=== PATIENT | male | born 1935 | race Two or more races ===

== ENCOUNTER → 2017-02-05 | Outpatient (CLI) | payer MEDICARE, OTHER ==
[~2017-02-05] MED LIST: ASPI-556 PO; ATOR40TA28 PO; CARV3.1262 PO; DOCU-119 PO; LISI-660 PO; METF500T4 PO; TICA90TA PO
== END | disposition home or self-care (01) ==
LOC: RADPV 13:46
PROVIDERS: ATTEND Internal Medicine Cardiovascular Disease
DX: I50.1 Left ventricular failure, unspecified (principal); I25.2 Old myocardial infarction
CPT/HCPCS: 93306

== ENCOUNTER → 2017-03-15 | Outpatient (CLI) | payer MEDICARE, OTHER | END | disposition home or self-care (01) | LOC: RADMN 12:14 | PROVIDERS: ATTEND Family Medicine | DX: R42 Dizziness and giddiness (principal) | CPT/HCPCS: 70450 ==

== ENCOUNTER 2017-05-12 05:31 | Emergency (ER) | payer MEDICARE, OTHER ==
[~2017-05-12] VITALS: Ht 172.7 cm; Wt 88.6 kg
[2017-05-12 06:28] LABS: BASOPHILS # (AUTO) 0.05 K/uL (0.00-0.20); BASOPHILS % (AUTO) 0.7 % (0.0-2.0); EOSINOPHILS % (AUTO) 6.73 % (1.0-6.0); HEMATOCRIT 34.9 % (41-53); HEMOGLOBIN 11.7 g/dL (13.5-17.5); LYMPHOCYTES # (AUTO) 1.3 K/uL (1.0-4.8); LYMPHOCYTES % (AUTO) 17.5 % (22.0-44.0); MEAN CORPUSCULAR HEMOGLOBIN 31.1 pg (26.0-34.0); MEAN CORPUSCULAR HGB CONC 33.5 G/dL (31.0-37.0); MEAN CORPUSCULAR VOLUME 93 fL (80-100); MONOCYTES # (AUTO) 0.6 K/uL (0.1-1.0); PLATELET COUNT (AUTO) 270 K/uL (150-450); RED BLOOD CELL COUNT(AUTO) 3.76 MIL/uL (4.50-5.90); RED CELL DISTRIBUTION WIDTH 14.4 % (11.5-14.5); WHITE BLOOD COUNT (AUTO) 7.4 K/uL (4.5-11.0)
[2017-05-12 06:36] LABS: APPEARANCE,URINE CLEAR (CLEAR); GLUCOSE, URINE (UA) NEGATIVE (NEGATIVE); KETONES,URINE NEGATIVE (NEGATIVE); LEUKOCYTE ESTERASE ,URINE NEGATIVE (NEGATIVE); OCCULT BLOOD,URINE NEGATIVE (NEGATIVE); PH,URINE 5.5 (5.0-8.0); PROTEIN,URINE NEGATIVE (NEGATIVE)
[2017-05-12 06:37] LABS: ANION GAP 11 mmol/L (8-16); CALCIUM, TOTAL 8.3 mg/dL (8.8-10.5); CARBON DIOXIDE 25 mmol/L (22-29); CHLORIDE 108 mmol/L (98-107); CREATININE 1.15 mg/dL (0.60-1.30); GLOMERULAR FILTR. RATE CALC > 60 mL/min (>60); POTASSIUM 3.9 mmol/L (3.5-5.1); SODIUM SERUM 144 mmol/L (136-145); UREA NITROGEN, BLOOD 16 mg/dL (7-18)
[2017-05-12 06:43] LABS: ALANINE AMINOTRANSFERASE 17 U/L (12-78); ALBUMIN 3.1 g/dL (3.4-5.0); ASPARTATE AMINOTRANSFERASE 17 U/L (15-37); BILIRUBIN,TOTAL 0.5 mg/dL (0.1-1.0); TOTAL PROTEIN, SERUM 6.5 g/dL (6.4-8.2)
[2017-05-12 06:44] LABS: ADD UA MICROSCOPIC NO
[2017-05-12] MEDS ORDERED: SODIUM CHLORIDE 0.9% 500 ML IV ONE (06:45)
[2017-05-12] MEDS ORDERED: MORPHINE SULFATE 4 MG/ML SYRINGE IVP ONE (06:45)
[2017-05-12] MEDS ORDERED: ONDANSETRON HCL 4 MG/2 ML VIAL IVP ONE (06:45)
[2017-05-12 08:43] VITALS: BP 139/75
[2017-05-13 10:13] LABS: GLUCOSE,POINT OF CARE 89 MG/DL (70-110)
== END 2017-05-12 08:59 | disposition home or self-care (01) ==
LOC: EMS 05:33
DX: R10.9 Unspecified abdominal pain (principal); E11.9 Type 2 diabetes mellitus without complications; I10 Essential (primary) hypertension; E78.00 Pure hypercholesterolemia, unspecified
CPT/HCPCS: 36415; 74176; 80053; 81003; 82962; 85025; 96361; 96374; 96375; 99285; J2270; J2405; J7040

== ENCOUNTER → 2017-06-20 | Outpatient (CLI) | payer MEDICARE, OTHER | END | disposition home or self-care (01) | LOC: RADPV 09:28 | PROVIDERS: ATTEND Family Medicine | DX: M47.816 Spondylosis without myelopathy or radiculopathy, lumbar region (principal); M81.0 Age-related osteoporosis without current pathological fracture; G95.19 Other vascular myelopathies; M43.16 Spondylolisthesis, lumbar region; E11.9 Type 2 diabetes mellitus without complications; Z91.81 History of falling | CPT/HCPCS: 72100 ==

== ENCOUNTER → 2017-06-28 | Outpatient (CLI) | payer MEDICARE, OTHER | END | disposition home or self-care (01) | LOC: RADPV 08:40 | PROVIDERS: ATTEND Family Medicine | DX: K80.20 Calculus of gallbladder without cholecystitis without obstruction (principal) | CPT/HCPCS: 76700 ==

== ENCOUNTER → 2017-12-04 | Outpatient (CLI) | payer MEDICARE, OTHER ==
[2017-12-04 11:32] LABS: EOSINOPHILS % (AUTO) 2.8 % (1.0-6.0); HEMATOCRIT 37.6 % (41-53); HEMOGLOBIN 12.9 g/dL (13.5-17.5); LYMPHOCYTES # (AUTO) 1.4 K/uL (1.0-4.8); LYMPHOCYTES % (AUTO) 26.9 % (22.0-44.0); MEAN CORPUSCULAR HEMOGLOBIN 31.4 pg (26.0-34.0); MEAN CORPUSCULAR HGB CONC 34.3 G/dL (31.0-37.0); MEAN CORPUSCULAR VOLUME 92 fL (80-100); MONOCYTES # (AUTO) 0.4 K/uL (0.1-1.0); MONOCYTES % (AUTO) 8.6 % (2.0-9.0); NEUTROPHILS # (AUTO) 3.1 K/uL (1.8-7.7); NEUTROPHILS % (AUTO) 60.7 % (40.0-70.0); PLATELET COUNT (AUTO) 207 K/uL (150-450); RED BLOOD CELL COUNT(AUTO) 4.11 MIL/uL (4.50-5.90)
[2017-12-04 11:54] LABS: HEMOGLOBIN A1C 6.8 % (4.5-6.2)
[2017-12-04 11:59] LABS: ALANINE AMINOTRANSFERASE 27 U/L (12-78); ALBUMIN 3.6 g/dL (3.4-5.0); ALKALINE PHOSPHATASE 38 U/L (46-116); ANION GAP 8 mmol/L (8-16); ASPARTATE AMINOTRANSFERASE 33 U/L (15-37); BILIRUBIN,TOTAL 0.5 mg/dL (0.1-1.0); CALCIUM, TOTAL 8.7 mg/dL (8.8-10.5); CARBON DIOXIDE 29 mmol/L (22-29); CHLORIDE 107 mmol/L (98-107); CHOL/HDL RATIO 4.8 (4.2-7.3); CHOLESTEROL 140 mg/dL (131-200); CREATININE 1.09 mg/dL (0.60-1.30); GLOMERULAR FILTR. RATE CALC > 60 mL/min (>60); GLUCOSE,RANDOM 124 mg/dL (70-110); HDL CHOLESTEROL 29 mg/dL (40-60); LDL CHOL (CALC.) 88 mg/dL (0-130); POTASSIUM 4.2 mmol/L (3.5-5.1); SODIUM SERUM 144 mmol/L (136-145); THYROID STIMULATING HORMONE 3.34 uIU/mL (0.36-3.74); TOTAL PROTEIN, SERUM 6.8 g/dL (6.4-8.2); TRIGLYCERIDES 117 mg/dL (15-150); UREA NITROGEN, BLOOD 17 mg/dL (7-18)
[2017-12-04 12:11] LABS: APPEARANCE,URINE CLEAR (CLEAR); BILIRUBIN,URINE NEGATIVE (NEGATIVE); GLUCOSE, URINE (UA) NEGATIVE (NEGATIVE); KETONES,URINE NEGATIVE (NEGATIVE); LEUKOCYTE ESTERASE ,URINE NEGATIVE (NEGATIVE); NITRATE,URINE NEGATIVE (NEGATIVE); OCCULT BLOOD,URINE NEGATIVE (NEGATIVE); PROTEIN,URINE NEGATIVE (NEGATIVE)
[2017-12-04 13:19] LABS: CREATININE,URINE 55.8 mg/dL (30.0-125.0)
[2017-12-04 13:45] LABS: COLLECTION TIME,URINE 24 HR; CREAT CLEARANCE/1.73sq.meter 76 ml/min (85-125); TOTAL VOLUME,CREAT CLR 2150 mL; TPROTEIN TIMED,URINE < 6 mg/dL; TPROTEIN URINE, 24HRS COLL < 129 mg/24Hr (0-165)
[2017-12-04 13:46] LABS: CREATININE,SERUM FOR CRCL 1.09 mg/dL (0.60-1.30)
== END | disposition home or self-care (01) ==
LOC: LABPV 08:57
PROVIDERS: ATTEND Internal Medicine Nephrology
DX: I12.9 Hypertensive chronic kidney disease with stage 1 through stage 4 chronic kidney disease, or unspecified chronic kidney disease (principal); E11.22 Type 2 diabetes mellitus with diabetic chronic kidney disease; N18.9 Chronic kidney disease, unspecified; E55.9 Vitamin D deficiency, unspecified
CPT/HCPCS: 81050; 82043; 82306; 82570; 82575; 83036; 83970; 84156; 84436; 84443; 84480

== ENCOUNTER → 2017-12-24 | Outpatient (CLI) | payer MEDICARE, OTHER | END | disposition home or self-care (01) | LOC: RADPV 09:17 | PROVIDERS: ATTEND Internal Medicine Nephrology | DX: N18.9 Chronic kidney disease, unspecified (principal) | CPT/HCPCS: 76770 ==

== ENCOUNTER → 2018-04-17 | Outpatient (CLI) | payer MEDICARE, OTHER ==
[~2018-04-17] MED LIST changes: -METF500T4 PO; +METF500T6 PO
== END | disposition home or self-care (01) ==
LOC: RADPV 08:44
PROVIDERS: ATTEND Internal Medicine Cardiovascular Disease
DX: I34.2 Nonrheumatic mitral (valve) stenosis (principal); I50.1 Left ventricular failure, unspecified
CPT/HCPCS: 93306

== ENCOUNTER 2018-05-08 09:46 | Emergency (ER) | payer MEDICARE, OTHER ==
[~2018-05-08] VITALS: Ht 170.2 cm; Wt 90.9 kg
[2018-05-08] MEDS ORDERED: IPRA4AER IH (10:00)
[2018-05-08 10:27] LABS: BASOPHILS % (AUTO) 0.4 % (0.0-2.0); EOSINOPHILS % (AUTO) 0.1 % (1.0-6.0); HEMATOCRIT 34.9 % (41-53); HEMOGLOBIN 11.9 g/dL (13.5-17.5); LYMPHOCYTES # (AUTO) 1.1 K/uL (1.0-4.8); LYMPHOCYTES % (AUTO) 9.6 % (22.0-44.0); MEAN CORPUSCULAR HEMOGLOBIN 31.2 pg (26.0-34.0); MEAN CORPUSCULAR HGB CONC 34.2 G/dL (31.0-37.0); MEAN CORPUSCULAR VOLUME 91 fL (80-100); MONOCYTES # (AUTO) 0.8 K/uL (0.1-1.0); MONOCYTES % (AUTO) 7.4 % (2.0-9.0); NEUTROPHILS # (AUTO) 9.4 K/uL (1.8-7.7); NEUTROPHILS % (AUTO) 82.5 % (40.0-70.0); PLATELET COUNT (AUTO) 181 K/uL (150-450); RED BLOOD CELL COUNT(AUTO) 3.82 MIL/uL (4.50-5.90); RED CELL DISTRIBUTION WIDTH 14.1 % (11.5-14.5)
[2018-05-08 10:35] LABS: CALCIUM, TOTAL 8.8 mg/dL (8.8-10.5); CREATININE 1.21 mg/dL (0.60-1.30); POTASSIUM 4.3 mmol/L (3.5-5.1)
[2018-05-08 10:46] LABS: ALBUMIN 3.5 g/dL (3.4-5.0)
[2018-05-08] MEDS ORDERED: IOVERSOL 350 MG/ML 150 ML VIAL ONE (11:39)
[2018-05-08] MEDS ORDERED: SODIUM CHLORIDE 0.9% 100 ML ONE (11:39)
[2018-05-08 14:02] VITALS: BP 150/74
== END 2018-05-08 15:10 | disposition home or self-care (01) ==
LOC: EMS 09:47
DX: R06.02 Shortness of breath (principal); I25.10 Atherosclerotic heart disease of native coronary artery without angina pectoris; E11.9 Type 2 diabetes mellitus without complications; I11.0 Hypertensive heart disease with heart failure; I50.9 Heart failure, unspecified; E78.00 Pure hypercholesterolemia, unspecified; I25.2 Old myocardial infarction; Z98.61 Coronary angioplasty status; Z79.82 Long term (current) use of aspirin; Z79.899 Other long term (current) drug therapy; Z98.890 Other specified postprocedural states
CPT/HCPCS: 36415; 71045; 71275; 80053; 83880; 84484; 85025; 93005; 99285; J7050; Q9967

== ENCOUNTER → 2018-05-26 | Outpatient (CLI) | payer MEDICARE, OTHER ==
[~2018-05-26] MED LIST changes: +IOVERSOL 350 MG/ML 150 ML VIAL ONE; +IPRA4AER IH
== END | disposition home or self-care (01) ==
LOC: RADPV 09:27
PROVIDERS: ATTEND Family Medicine
DX: S22.42XA Multiple fractures of ribs, left side, initial encounter for closed fracture (principal); I51.7 Cardiomegaly; I70.0 Atherosclerosis of aorta; I25.10 Atherosclerotic heart disease of native coronary artery without angina pectoris; E78.00 Pure hypercholesterolemia, unspecified; E11.9 Type 2 diabetes mellitus without complications; I10 Essential (primary) hypertension; X58.XXXA Exposure to other specified factors, initial encounter; Y93.89 Activity, other specified; Y92.89 Other specified places as the place of occurrence of the external cause; Y99.8 Other external cause status
CPT/HCPCS: 71101

== ENCOUNTER 2018-05-28 03:05 | Inpatient (IN) | payer MEDICARE, OTHER ==
[~2018-05-28] VITALS: Ht 172.7 cm; Wt 98.6 kg
[~2018-05-28 03:05] MED LIST changes: -IOVERSOL 350 MG/ML 150 ML VIAL ONE; +METF-960 PO; -METF500T6 PO
[2018-05-28 03:19] LABS: GLUCOSE,POINT OF CARE 142 MG/DL (70-110)
[2018-05-28] MEDS ORDERED: ACETAMINOPHEN 500 MG TABLET PO ONE ×2 (03:30→04:15)
[2018-05-28] MEDS ORDERED: ACETAMINOPHEN 500 MG TABLET ONE (03:31)
[2018-05-28 03:32] LABS: BASOPHILS % (AUTO) 0.3 % (0.0-2.0); EOSINOPHILS % (AUTO) 0.2 % (1.0-6.0); HEMATOCRIT 29.4 % (41-53); LYMPHOCYTES # (AUTO) 1.3 K/uL (1.0-4.8); LYMPHOCYTES % (AUTO) 11.8 % (22.0-44.0); MEAN CORPUSCULAR HEMOGLOBIN 31.2 pg (26.0-34.0); MEAN CORPUSCULAR VOLUME 92 fL (80-100); MONOCYTES # (AUTO) 1.5 K/uL (0.1-1.0); MONOCYTES % (AUTO) 13.6 % (2.0-9.0); NEUTROPHILS # (AUTO) 8.4 K/uL (1.8-7.7); NEUTROPHILS % (AUTO) 74.1 % (40.0-70.0); PLATELET COUNT (AUTO) 189 K/uL (150-450); RED CELL DISTRIBUTION WIDTH 14.3 % (11.5-14.5)
[2018-05-28 03:48] LABS: ANION GAP 9 mmol/L (8-16); CALCIUM, TOTAL 8.1 mg/dL (8.8-10.5); CARBON DIOXIDE 25 mmol/L (22-29); CHLORIDE 102 mmol/L (98-107); CREATININE 1.09 mg/dL (0.60-1.30); GLUCOSE,RANDOM 142 mg/dL (70-110); POTASSIUM 4.1 mmol/L (3.5-5.1); SODIUM SERUM 136 mmol/L (136-145); UREA NITROGEN, BLOOD 16 mg/dL (7-18)
[2018-05-28 03:53] LABS: ALANINE AMINOTRANSFERASE 46 U/L (12-78); ALBUMIN 2.6 g/dL (3.4-5.0); ALKALINE PHOSPHATASE 93 U/L (46-116); ASPARTATE AMINOTRANSFERASE 42 U/L (15-37); BILIRUBIN,TOTAL 0.7 mg/dL (0.1-1.0); TOTAL PROTEIN, SERUM 6.5 g/dL (6.4-8.2)
[2018-05-28 03:54] LABS: GLOMERULAR FILTR. RATE CALC > 60 mL/min (>60)
[2018-05-28] MEDS ORDERED: LEVOFLOXACIN 750 MG/D5% WATER 150 ML IV ONE (04:15)
[2018-05-28] MEDS ORDERED: ASPIRIN 81 MG CHEWABLE TABLET PO ONE (04:30)
[2018-05-28 04:31] LABS: APPEARANCE,URINE CLOUDY (CLEAR); BILIRUBIN,URINE NEGATIVE (NEGATIVE); GLUCOSE, URINE (UA) NEGATIVE (NEGATIVE); KETONES,URINE NEGATIVE (NEGATIVE); LEUKOCYTE ESTERASE ,URINE LARGE (NEGATIVE); NITRATE,URINE POSITIVE (NEGATIVE); OCCULT BLOOD,URINE LARGE (NEGATIVE); PROTEIN,URINE SEE CONFIRM (NEGATIVE)
[2018-05-28 04:36] LABS: INR 1.1 (0.9-1.1); PROTHROMBIN TIME 11.5 SEC (9.4-11.6)
[2018-05-28 04:54] LABS: BACTERIA,URINE Moderate /HPF (None Seen); SQUAMOUS EPITHELIAL CELL,UR Few /LPF (None Seen); SULFOSALICYLIC ACID,URINE 1+ (Negative)
[2018-05-28 06:34] LABS: GLUCOSE,POINT OF CARE 118 MG/DL (70-110)
[2018-05-28 14:59] LABS: GLUCOSE,POINT OF CARE 98 MG/DL (70-110)
[2018-05-28] MEDS ORDERED: SODIUM CHLORIDE 0.45% 1,000 ML IV ONE (15:00)
[2018-05-28] MEDS ORDERED: CefTRIAXone SODIUM 2 GM in DEXTROSE 5%-WATER 20 ML IV SCH (15:00)
[2018-05-28] MEDS ORDERED: HYDROCODONE/ACETAMINOPHEN 5-325 MG TABLET PO PRN ×2 (15:15)
[2018-05-28] MEDS ORDERED: GLUCAGON,HUMAN RECOMBINANT 1 MG VIAL IM PRN (15:15)
[2018-05-28] MEDS ORDERED: ZOLPIDEM TARTRATE 5 MG TABLET PO PRN (15:15)
[2018-05-28] MEDS ORDERED: BISACODYL 10 MG RECTAL RECTAL SUPPOSITORY PR PRN (15:15)
[2018-05-28] MEDS ORDERED: MAGNESIUM HYDROXIDE SUSPENSION 30 ML UDCUP PO PRN (15:15)
[2018-05-28] MEDS ORDERED: ACETAMINOPHEN 325 MG TABLET PO PRN (15:15)
[2018-05-28] MEDS ORDERED: DEXTROSE 50%-WATER 25 GM/50 ML SYG IVP PRN (18:00)
[2018-05-28] MEDS: INSULIN LISPRO 100 UNITS/ML SQ PRN ×2 (18:03→20:51)
[2018-05-28 18:24] VITALS: BP 155/72
[2018-05-28 20:17] VITALS: BP 108/57
[2018-05-28] MEDS: DOCUSATE SODIUM 100 MG CAPSULE PO SCH (20:47)
[2018-05-28] MEDS: ATORVASTATIN CALCIUM 40 MG TABLET PO SCH (20:47)
[2018-05-28] MEDS: TICAGRELOR 90 MG TABLET PO SCH (20:47)
[2018-05-28] MEDS: CARVEDILOL 3.125 MG TABLET PO SCH (20:47)
[2018-05-28] MEDS: ALBUTEROL SULFATE/IPRATROPIUM 100-20 MCG/SPRAY 4 GM INHALER IH SCH (20:50)
[2018-05-28] MEDS: ACETAMINOPHEN 325 MG TABLET PO PRN (20:50)
[2018-05-28 21:49] LABS: GLUCOMETER DEV NAME(LOC) 5N 2S; GLUCOSE,POINT OF CARE 171 MG/DL (70-110)
[2018-05-29] VITALS (7 sets, daily range): BP systolic 100–134; BP diastolic 50–70
[2018-05-29 02:43] LABS: GLUCOMETER DEV NAME(LOC) 5S 2Q; GLUCOSE,POINT OF CARE 172 MG/DL (70-110)
[2018-05-29 06:51] LABS: BASOPHILS % (AUTO) 0.4 % (0.0-2.0); EOSINOPHILS % (AUTO) 0.5 % (1.0-6.0); HEMATOCRIT 26.9 % (41-53); HEMOGLOBIN 9.3 g/dL (13.5-17.5); MEAN CORPUSCULAR HEMOGLOBIN 31.7 pg (26.0-34.0); MEAN CORPUSCULAR HGB CONC 34.6 G/dL (31.0-37.0); MEAN CORPUSCULAR VOLUME 92 fL (80-100); MONOCYTES # (AUTO) 1.1 K/uL (0.1-1.0); MONOCYTES % (AUTO) 11.2 % (2.0-9.0); NEUTROPHILS # (AUTO) 7.5 K/uL (1.8-7.7); NEUTROPHILS % (AUTO) 77.9 % (40.0-70.0); PLATELET COUNT (AUTO) 167 K/uL (150-450); RED BLOOD CELL COUNT(AUTO) 2.93 MIL/uL (4.50-5.90); RED CELL DISTRIBUTION WIDTH 13.9 % (11.5-14.5)
[2018-05-29 07:07] LABS: ALANINE AMINOTRANSFERASE 50 U/L (12-78); ALBUMIN 2.2 g/dL (3.4-5.0); ALKALINE PHOSPHATASE 94 U/L (46-116); ANION GAP 9 mmol/L (8-16); ASPARTATE AMINOTRANSFERASE 47 U/L (15-37); BILIRUBIN,TOTAL 0.7 mg/dL (0.1-1.0); CALCIUM, TOTAL 7.8 mg/dL (8.8-10.5); CARBON DIOXIDE 25 mmol/L (22-29); CHLORIDE 103 mmol/L (98-107); CHOL/HDL RATIO 5.2 (4.2-7.3); CHOLESTEROL 78 mg/dL (131-200); CREATININE 0.99 mg/dL (0.60-1.30); GLUCOSE,RANDOM 132 mg/dL (70-110); HDL CHOLESTEROL 15 mg/dL (40-60); LDL CHOL (CALC.) 42 mg/dL (0-130); POTASSIUM 3.8 mmol/L (3.5-5.1); SODIUM SERUM 137 mmol/L (136-145); TOTAL PROTEIN, SERUM 5.9 g/dL (6.4-8.2); TRIGLYCERIDES 103 mg/dL (15-150); UREA NITROGEN, BLOOD 15 mg/dL (7-18)
[2018-05-29 07:10] LABS: GLOMERULAR FILTR. RATE CALC > 60 mL/min (>60)
[2018-05-29 07:26] LABS: FREE T4 (FREE THYROXINE) 1.19 ng/dL (0.76-1.46)
[2018-05-29] MEDS: TICAGRELOR 90 MG TABLET PO SCH ×2 (08:42→21:02)
[2018-05-29] MEDS: ASPIRIN 81 MG CHEWABLE TABLET PO SCH (08:43)
[2018-05-29] MEDS: CARVEDILOL 3.125 MG TABLET PO SCH ×2 (08:43→20:54)
[2018-05-29] MEDS: LISINOPRIL 5 MG TABLET PO SCH (08:43)
[2018-05-29] MEDS: LANSOPRAZOLE 30 MG SOLUBLE TABLET PO SCH (08:43)
[2018-05-29] MEDS: DOCUSATE SODIUM 100 MG CAPSULE PO SCH ×2 (08:43→20:54)
[2018-05-29] MEDS: ALBUTEROL SULFATE/IPRATROPIUM 100-20 MCG/SPRAY 4 GM INHALER IH SCH ×2 (08:44→20:54)
[2018-05-29] MEDS: ENOXAPARIN SODIUM 40 MG/0.4 ML PF SYRINGE SQ SCH (08:45)
[2018-05-29] MEDS ORDERED: [UNRECOGNIZED DRUG - OTHER] PO SCH (09:00)
[2018-05-29 10:13] LABS: GLUCOMETER DEV NAME(LOC) 5S 2Q; GLUCOSE,POINT OF CARE 127 MG/DL (70-110)
[2018-05-29] MEDS: INSULIN LISPRO 100 UNITS/ML SQ PRN ×3 (12:00→20:56)
[2018-05-29] MEDS: CefTRIAXone SODIUM 2 GM in DEXTROSE 5%-WATER 20 ML IV SCH (14:01)
[2018-05-29] MEDS: ATORVASTATIN CALCIUM 40 MG TABLET PO SCH (20:54)
[2018-05-29 20:59] LABS: GLUCOMETER DEV NAME(LOC) 5N 2S; GLUCOSE,POINT OF CARE 156 MG/DL (70-110)
[2018-05-29] MEDS: ACETAMINOPHEN 325 MG TABLET PO PRN (21:03)
[2018-05-29 21:04] LABS: GLUCOMETER DEV NAME(LOC) 5S 2Q; GLUCOSE,POINT OF CARE 195 MG/DL (70-110)
[2018-05-29 21:04] LABS: GLUCOMETER DEV NAME(LOC) 5S 2Q; GLUCOSE,POINT OF CARE 156 MG/DL (70-110)
[2018-05-30 04:37] VITALS: BP 118/66
[2018-05-30] MEDS: INSULIN LISPRO 100 UNITS/ML SQ PRN ×4 (06:03→21:32)
[2018-05-30 07:04] LABS: GLUCOMETER DEV NAME(LOC) 5N 2S; GLUCOSE,POINT OF CARE 124 MG/DL (70-110)
[2018-05-30 07:16] VITALS: BP 133/65
[2018-05-30] MEDS: TICAGRELOR 90 MG TABLET PO SCH ×2 (08:07→21:17)
[2018-05-30] MEDS: ASPIRIN 81 MG CHEWABLE TABLET PO SCH (08:07)
[2018-05-30] MEDS: DOCUSATE SODIUM 100 MG CAPSULE PO SCH ×2 (08:07→21:17)
[2018-05-30] MEDS: CARVEDILOL 3.125 MG TABLET PO SCH ×2 (08:08→21:17)
[2018-05-30] MEDS: ENOXAPARIN SODIUM 40 MG/0.4 ML PF SYRINGE SQ SCH (08:08)
[2018-05-30] MEDS: LANSOPRAZOLE 30 MG SOLUBLE TABLET PO SCH (08:08)
[2018-05-30] MEDS: ALBUTEROL SULFATE/IPRATROPIUM 100-20 MCG/SPRAY 4 GM INHALER IH SCH ×2 (08:08→21:17)
[2018-05-30] MEDS: LISINOPRIL 5 MG TABLET PO SCH (08:08)
[2018-05-30 11:16] VITALS: BP 124/65
[2018-05-30 13:54] LABS: GLUCOMETER DEV NAME(LOC) 5S 2Q; GLUCOSE,POINT OF CARE 211 MG/DL (70-110)
[2018-05-30] MEDS ORDERED: VANCOMYCIN HCL 1.5 GM in DEXTROSE 5%-WATER 250 ML IV ONE (15:00)
[2018-05-30] MEDS ORDERED: SODIUM CHLORIDE 0.9% 100 ML ONE (15:11)
[2018-05-30] MEDS: CefTRIAXone SODIUM 2 GM in DEXTROSE 5%-WATER 20 ML IV SCH (15:16)
[2018-05-30 16:13] VITALS: BP 129/64
[2018-05-30 18:39] LABS: GLUCOMETER DEV NAME(LOC) 5N 2S; GLUCOSE,POINT OF CARE 206 MG/DL (70-110)
[2018-05-30 19:19] VITALS: BP 134/61
[2018-05-30] MEDS: ATORVASTATIN CALCIUM 40 MG TABLET PO SCH (21:18)
[2018-05-30 23:53] LABS: GLUCOMETER DEV NAME(LOC) 5S 2Q; GLUCOSE,POINT OF CARE 234 MG/DL (70-110)
[2018-05-31 00:21] VITALS: BP 129/68
[2018-05-31 04:15] VITALS: BP 118/62
[2018-05-31] MEDS: INSULIN LISPRO 100 UNITS/ML SQ PRN ×4 (06:23→21:04)
[2018-05-31 07:31] LABS: ANION GAP 8 mmol/L (8-16); CALCIUM, TOTAL 8.1 mg/dL (8.8-10.5); CARBON DIOXIDE 24 mmol/L (22-29); CHLORIDE 106 mmol/L (98-107); CREATININE 0.84 mg/dL (0.60-1.30); GLUCOSE,RANDOM 145 mg/dL (70-110); POTASSIUM 3.7 mmol/L (3.5-5.1); SODIUM SERUM 138 mmol/L (136-145); UREA NITROGEN, BLOOD 18 mg/dL (7-18)
[2018-05-31 07:33] LABS: GLOMERULAR FILTR. RATE CALC > 60 mL/min (>60)
[2018-05-31 07:50] VITALS: BP 125/58
[2018-05-31] MEDS ORDERED: VANCOMYCIN HCL 1 GM/D5% WATER 200 ML IV SCH (08:00)
[2018-05-31] MEDS: CARVEDILOL 3.125 MG TABLET PO SCH ×2 (08:33→20:57)
[2018-05-31] MEDS: ASPIRIN 81 MG CHEWABLE TABLET PO SCH (08:33)
[2018-05-31] MEDS: LANSOPRAZOLE 30 MG SOLUBLE TABLET PO SCH (08:33)
[2018-05-31] MEDS: DOCUSATE SODIUM 100 MG CAPSULE PO SCH ×2 (08:33→20:57)
[2018-05-31] MEDS: ENOXAPARIN SODIUM 40 MG/0.4 ML PF SYRINGE SQ SCH (08:33)
[2018-05-31] MEDS: TICAGRELOR 90 MG TABLET PO SCH ×2 (08:33→20:57)
[2018-05-31] MEDS: ALBUTEROL SULFATE/IPRATROPIUM 100-20 MCG/SPRAY 4 GM INHALER IH SCH ×2 (08:34→20:58)
[2018-05-31 11:32] VITALS: BP 121/64
[2018-05-31] MEDS: LISINOPRIL 5 MG TABLET PO SCH (12:04)
[2018-05-31] MEDS ORDERED: CeFAZolin 2 GM/DEXTROSE 50 ML IV SCH ×2 (15:00→16:15)
[2018-05-31 15:13] VITALS: BP 143/71
[2018-05-31 19:31] VITALS: BP 148/77
[2018-05-31 20:44] LABS: GLUCOMETER DEV NAME(LOC) 5S 1M; GLUCOSE,POINT OF CARE 203 MG/DL (70-110)
[2018-05-31 20:44] LABS: GLUCOMETER DEV NAME(LOC) 5S 1M; GLUCOSE,POINT OF CARE 135 MG/DL (70-110)
[2018-05-31] MEDS: ATORVASTATIN CALCIUM 40 MG TABLET PO SCH (20:57)
[2018-05-31 21:04] LABS: GLUCOMETER DEV NAME(LOC) 5N 2S; GLUCOSE,POINT OF CARE 177 MG/DL (70-110)
[2018-06-01 00:04] VITALS: BP 134/71
[2018-06-01] MEDS: CeFAZolin 2 GM/DEXTROSE 50 ML IV SCH ×3 (01:05→16:48)
[2018-06-01 03:53] VITALS: BP 136/68
[2018-06-01] MEDS: INSULIN LISPRO 100 UNITS/ML SQ PRN ×4 (06:22→20:41)
[2018-06-01 06:24] LABS: GLUCOMETER DEV NAME(LOC) 5S 2Q; GLUCOSE,POINT OF CARE 218 MG/DL (70-110)
[2018-06-01 06:53] LABS: ANION GAP 8 mmol/L (8-16); CALCIUM, TOTAL 8.1 mg/dL (8.8-10.5); CARBON DIOXIDE 25 mmol/L (22-29); CHLORIDE 106 mmol/L (98-107); CREATININE 0.91 mg/dL (0.60-1.30); GLUCOSE,RANDOM 148 mg/dL (70-110); POTASSIUM 3.9 mmol/L (3.5-5.1); SODIUM SERUM 139 mmol/L (136-145); UREA NITROGEN, BLOOD 13 mg/dL (7-18); VANCOMYCIN,RANDOM 4.7 mcg/mL (25.0-50.0)
[2018-06-01 07:01] LABS: GLOMERULAR FILTR. RATE CALC > 60 mL/min (>60)
[2018-06-01 07:44] VITALS: BP 140/66
[2018-06-01] MEDS: CARVEDILOL 3.125 MG TABLET PO SCH ×2 (07:54→20:35)
[2018-06-01] MEDS: LISINOPRIL 5 MG TABLET PO SCH (07:54)
[2018-06-01] MEDS: DOCUSATE SODIUM 100 MG CAPSULE PO SCH ×2 (07:54→20:34)
[2018-06-01] MEDS: ENOXAPARIN SODIUM 40 MG/0.4 ML PF SYRINGE SQ SCH (07:54)
[2018-06-01] MEDS: TICAGRELOR 90 MG TABLET PO SCH ×2 (07:54→20:34)
[2018-06-01] MEDS: ASPIRIN 81 MG CHEWABLE TABLET PO SCH (07:54)
[2018-06-01] MEDS: LANSOPRAZOLE 30 MG SOLUBLE TABLET PO SCH (07:55)
[2018-06-01] MEDS ORDERED: CeFAZolin 2 GM/DEXTROSE 50 ML IV SCH (08:00)
[2018-06-01] MEDS: ALBUTEROL SULFATE/IPRATROPIUM 100-20 MCG/SPRAY 4 GM INHALER IH SCH ×2 (08:01→20:35)
[2018-06-01 11:24] VITALS: BP 137/66
[2018-06-01 15:47] VITALS: BP 146/78
[2018-06-01 19:59] VITALS: BP 138/68
[2018-06-01] MEDS: ATORVASTATIN CALCIUM 40 MG TABLET PO SCH (20:34)
[2018-06-01] MEDS ORDERED: SODIUM CHLORIDE 0.9% 250 ML IV ONE (23:53)
[2018-06-02] VITALS (7 sets, daily range): BP systolic 121–141; BP diastolic 60–89
[2018-06-02] MEDS: CeFAZolin 2 GM/DEXTROSE 50 ML IV SCH ×4 (00:38→23:58)
[2018-06-02 01:08] LABS: GLUCOMETER DEV NAME(LOC) 6N 2D; GLUCOSE,POINT OF CARE 165 MG/DL (70-110)
[2018-06-02] MEDS: INSULIN LISPRO 100 UNITS/ML SQ PRN ×4 (05:07→20:01)
[2018-06-02 05:53] LABS: GLUCOMETER DEV NAME(LOC) 6N 2D; GLUCOSE,POINT OF CARE 150 MG/DL (70-110)
[2018-06-02 06:53] LABS: GLUCOMETER DEV NAME(LOC) 5N 2S; GLUCOSE,POINT OF CARE 185 MG/DL (70-110)
[2018-06-02 06:53] LABS: GLUCOMETER DEV NAME(LOC) 5N 2S; GLUCOSE,POINT OF CARE 147 MG/DL (70-110)
[2018-06-02 06:53] LABS: GLUCOMETER DEV NAME(LOC) 5N 2S; GLUCOSE,POINT OF CARE 208 MG/DL (70-110)
[2018-06-02] MEDS: ALBUTEROL SULFATE/IPRATROPIUM 100-20 MCG/SPRAY 4 GM INHALER IH SCH ×2 (08:11→19:55)
[2018-06-02] MEDS: LANSOPRAZOLE 30 MG SOLUBLE TABLET PO SCH (08:14)
[2018-06-02] MEDS: LISINOPRIL 5 MG TABLET PO SCH (08:14)
[2018-06-02] MEDS: TICAGRELOR 90 MG TABLET PO SCH ×2 (08:14→19:54)
[2018-06-02] MEDS: CARVEDILOL 3.125 MG TABLET PO SCH ×2 (08:14→19:54)
[2018-06-02] MEDS: ASPIRIN 81 MG CHEWABLE TABLET PO SCH (08:14)
[2018-06-02] MEDS: DOCUSATE SODIUM 100 MG CAPSULE PO SCH ×2 (08:15→19:55)
[2018-06-02] MEDS: ENOXAPARIN SODIUM 40 MG/0.4 ML PF SYRINGE SQ SCH (08:16)
[2018-06-02 11:54] LABS: GLUCOMETER DEV NAME(LOC) 6N 2D; GLUCOSE,POINT OF CARE 234 MG/DL (70-110)
[2018-06-02 16:49] LABS: GLUCOMETER DEV NAME(LOC) 6N 1E; GLUCOSE,POINT OF CARE 158 MG/DL (70-110)
[2018-06-02] MEDS: ATORVASTATIN CALCIUM 40 MG TABLET PO SCH (19:55)
[2018-06-02 20:54] LABS: GLUCOMETER DEV NAME(LOC) 6N 1E; GLUCOSE,POINT OF CARE 233 MG/DL (70-110)
[2018-06-03 03:35] VITALS: BP 128/70
[2018-06-03] MEDS: INSULIN LISPRO 100 UNITS/ML SQ PRN ×2 (05:59→11:47)
[2018-06-03 06:09] LABS: GLUCOMETER DEV NAME(LOC) 6N 1E; GLUCOSE,POINT OF CARE 156 MG/DL (70-110)
[2018-06-03 08:06] VITALS: BP 137/67
[2018-06-03] MEDS: DOCUSATE SODIUM 100 MG CAPSULE PO SCH (09:00)
[2018-06-03] MEDS: CeFAZolin 2 GM/DEXTROSE 50 ML IV SCH (09:18)
[2018-06-03] MEDS: ALBUTEROL SULFATE/IPRATROPIUM 100-20 MCG/SPRAY 4 GM INHALER IH SCH (09:22)
[2018-06-03] MEDS: LISINOPRIL 5 MG TABLET PO SCH (09:23)
[2018-06-03] MEDS: ASPIRIN 81 MG CHEWABLE TABLET PO SCH (09:23)
[2018-06-03] MEDS: CARVEDILOL 3.125 MG TABLET PO SCH (09:23)
[2018-06-03] MEDS: TICAGRELOR 90 MG TABLET PO SCH (09:23)
[2018-06-03] MEDS: ENOXAPARIN SODIUM 40 MG/0.4 ML PF SYRINGE SQ SCH (09:24)
[2018-06-03] MEDS: LANSOPRAZOLE 30 MG SOLUBLE TABLET PO SCH (09:24)
[2018-06-03 11:44] VITALS: BP 126/74
[2018-06-03] MEDS ORDERED: CIPR250S4 PO (12:18)
[2018-06-03 13:24] LABS: GLUCOMETER DEV NAME(LOC) 6N 1E; GLUCOSE,POINT OF CARE 198 MG/DL (70-110)
== END 2018-06-03 13:00 | disposition home or self-care (01) | DRG 871 ==
LOC: EMS 03:06 → 5S 17:11 → 6N 06-01 18:45
PROVIDERS: ADMIT Hospitalist; ATTEND Hospitalist
DX: A41.9 Sepsis, unspecified organism (principal); J18.9 Pneumonia, unspecified organism; N12 Tubulo-interstitial nephritis, not specified as acute or chronic; N39.0 Urinary tract infection, site not specified; J44.0 Chronic obstructive pulmonary disease with (acute) lower respiratory infection; I10 Essential (primary) hypertension; E78.5 Hyperlipidemia, unspecified; E78.00 Pure hypercholesterolemia, unspecified; E11.9 Type 2 diabetes mellitus without complications; I25.10 Atherosclerotic heart disease of native coronary artery without angina pectoris; N40.0 Benign prostatic hyperplasia without lower urinary tract symptoms; B96.1 Klebsiella pneumoniae [K. pneumoniae] as the cause of diseases classified elsewhere; Z95.5 Presence of coronary angioplasty implant and graft; Z79.84 Long term (current) use of oral hypoglycemic drugs; I25.2 Old myocardial infarction
CPT/HCPCS: 71275; 83605; 84439; 84443; 87040; 87086; 93005; 93306; 96365; 96367; 99285; J0690; J0696; J1650; J1956; J3370; J7050; J7060

== ENCOUNTER 2019-07-23 05:48 | Emergency (ER) | payer MEDICARE, OTHER ==
[~2019-07-23] VITALS: Ht 170.2 cm; Wt 100.0 kg
[~2019-07-23 05:48] MED LIST changes: +CIPR250S4 PO
[2019-07-23 06:07] LABS: GLUCOSE,POINT OF CARE 148 MG/DL (70-110)
[2019-07-23 08:32] VITALS: BP 123/87
== END 2019-07-23 08:37 | disposition home or self-care (01) ==
LOC: EMS 05:48
DX: S09.90XA Unspecified injury of head, initial encounter (principal); I25.10 Atherosclerotic heart disease of native coronary artery without angina pectoris; E11.9 Type 2 diabetes mellitus without complications; E78.00 Pure hypercholesterolemia, unspecified; I10 Essential (primary) hypertension; I25.2 Old myocardial infarction; Z79.82 Long term (current) use of aspirin; Z79.84 Long term (current) use of oral hypoglycemic drugs; Z79.899 Other long term (current) drug therapy; W19.XXXA Unspecified fall, initial encounter; Y93.89 Activity, other specified; Y92.89 Other specified places as the place of occurrence of the external cause; Y99.8 Other external cause status
CPT/HCPCS: 70450; 72125

== ENCOUNTER 2020-06-03 16:01 | Emergency (ER) | payer MEDICARE, OTHER ==
[~2020-06-03] VITALS: Ht 167.6 cm; Wt 90.9 kg
[~2020-06-03 16:01] MED LIST changes: -CIPR250S4 PO
[2020-06-03 17:32] VITALS: BP 133/59
== END 2020-06-03 17:32 | disposition home or self-care (01) ==
LOC: EMS 16:01
DX: G56.22 Lesion of ulnar nerve, left upper limb (principal); I10 Essential (primary) hypertension; E78.00 Pure hypercholesterolemia, unspecified; E11.9 Type 2 diabetes mellitus without complications; I25.10 Atherosclerotic heart disease of native coronary artery without angina pectoris; Z79.82 Long term (current) use of aspirin; Z79.899 Other long term (current) drug therapy